=== PATIENT | male | born 1990 | race Caucasian/White ===

== ENCOUNTER 2022-01-02 01:09 | Emergency (ER) | payer MEDICAID ==
[~2022-01-02] VITALS: Ht 175.3 cm; Wt 69.0 kg
[2022-01-02 01:13] VITALS: BP 135/87
[2022-01-02] MEDS ORDERED: HYDROCODONE/ACETAMINOPHEN 5/325MG TABLET PO ONE (03:00)
[2022-01-02] MEDS ORDERED: CLIN300C12 MT (03:07)
[2022-01-02] MEDS ORDERED: CLIN-116 MT (03:07)
[2022-01-02] MEDS ORDERED: IBUP-2030 MT (03:08)
[2022-01-02] MEDS ORDERED: HYDR-4001 MT (03:08)
== END 2022-01-02 04:00 | disposition home or self-care (01) ==
LOC: ER 01:09
DX: K04.7 Periapical abscess without sinus (principal); Z88.0 Allergy status to penicillin
CPT/HCPCS: 99283

== ENCOUNTER 2022-04-14 20:19 | Emergency (ER) | payer MEDICAID ==
[~2022-04-14] VITALS: Ht 175.3 cm; Wt 75.0 kg
[~2022-04-14 20:19] MED LIST: CLIN-116 MT; CLIN-194 MT; HYDR-4001 MT; IBUP-2030 MT
[2022-04-14] MEDS ORDERED: KETOROLAC 30MG/ML VIAL IV STA (21:22)
[2022-04-14] MEDS ORDERED: ONDANSETRON HCL 4MG/2ML INJ IV STA (21:22)
[2022-04-14] MEDS ORDERED: SODIUM CHLORIDE 0.9% 1,000 ML IV ONE (21:30)
[2022-04-14] MEDS ORDERED: ACETAMINOPHEN 325MG TABLET PO ONE (23:00)
[2022-04-14 23:09] LABS: BASOPHILS % 0.5 % (0.0-2.0); HEMATOCRIT. 45.2 % (42.0-52.0); HEMOGLOBIN. 15.5 g/dL (14.0-18.0); LYMPHOCYTES % 25.5 % (20.0-50.0); MEAN CORPUSCULAR HEMOGLOBIN 30.6 pg (28.0-32.0); MEAN CORPUSCULAR VOLUME 89.4 fL (80.0-94.0); MEAN PLATELET VOLUME 6.7 fl (7.4-10.4); MONOCYTES % 7.7 % (2.0-8.0); NEUTROPHILS % 64.3 % (40.0-76.0); PLATELET 478 x1000/uL (130-400); RED BLOOD CELL COUNT 5.06 mill/uL (4.7-6.1); RED CELL DISTRIBUTION WIDTH 13.3 % (11.6-14.6)
[2022-04-14 23:18] LABS: CHLORIDE 102 mEq/L (98-107)
[2022-04-14 23:25] LABS: ETHANOL BLOOD < 10 mg/dL
[2022-04-14 23:36] VITALS: BP 114/66
[2022-04-15 00:40] LABS: CLARITY URINE CLEAR (CLEAR); COLOR URINE YELLOW (YELLOW); KETONES URINE 3+ (NEGATIVE); LEUKOCYTE ESTERASE URINE NEGATIVE (NEGATIVE); NITRITE URINE NEGATIVE (NEGATIVE); OCCULT BLOOD URINE NEGATIVE (NEGATIVE); PROTEIN URINE NEGATIVE (NEGATIVE); SPECIFIC GRAVITY URINE 1.018 (1.005-1.030); UROBILINOGEN URINE 0.2 E.U./dL (0.2-1.0)
[2022-04-15] MEDS ORDERED: ONDA4TAB50 MT (00:54)
[2022-04-15 00:56] LABS: *AMPHETAMINES SCREEN URINE PRESUMTIVE POSITIVE (NEGATIVE); *BARBITURATES SCREEN URINE NEGATIVE (NEGATIVE); *BENZODIAZEPINES SCREEN URINE NEGATIVE (NEGATIVE); *COCAINE SCREEN URINE NEGATIVE (NEGATIVE); CANNABINOID URINE SCREEN PRESUMTIVE POSITIVE (NEGATIVE); METHADONE URINE SCREEN NEGATIVE (NEGATIVE); OPIATES URINE SCREEN PRESUMTIVE POSITIVE (NEGATIVE); PHENCYCLIDINE URINE SCREEN NEGATIVE (NEGATIVE)
[2022-04-15] MEDS ORDERED: POTASSIUM CHLORIDE 20MEQ TABLET SR PO ONE (01:00)
== END 2022-04-15 02:13 | disposition home or self-care (01) ==
LOC: ER 20:19
DX: R10.33 Periumbilical pain (principal); R11.2 Nausea with vomiting, unspecified; E87.6 Hypokalemia; Z79.899 Other long term (current) drug therapy; Z88.0 Allergy status to penicillin
CPT/HCPCS: 36415; 74176; 80053; 80305; 80320; 81003; 83690; 85025; 96361; 96374; 99284; J1885; J2405; J7030; Z7610; G0480